=== PATIENT | female | born 1995 | race Caucasian/White ===

== ENCOUNTER → 2020-10-14 | Emergency (ER) | payer OTHER ==
[~2020-10-14] VITALS: Ht 172.7 cm; Wt 79.4 kg
== END | disposition home or self-care (01) ==
LOC: ER 20:20
DX: N89.8 Other specified noninflammatory disorders of vagina (principal); A63.8 Other specified predominantly sexually transmitted diseases

== ENCOUNTER 2020-12-12 09:41 | Emergency (ER) | payer OTHER ==
[~2020-12-12] VITALS: Ht 167.6 cm; Wt 81.6 kg
== END 2020-12-12 15:40 | disposition home or self-care (01) ==
LOC: ER 09:41
DX: R07.89 Other chest pain (principal); G89.11 Acute pain due to trauma

== ENCOUNTER 2021-09-24 09:52 | Emergency (ER) | payer OTHER ==
[~2021-09-24] VITALS: Ht 172.7 cm; Wt 83.9 kg
[2021-09-24] MEDS ORDERED: MOMETASONE FURO15 G2 TOP (13:38)
== END 2021-09-24 13:47 | disposition home or self-care (01) ==
LOC: ER 09:52
DX: L25.8 Unspecified contact dermatitis due to other agents (principal)

== ENCOUNTER 2022-04-25 08:30 | Outpatient (CLI) | payer OTHER ==
[~2022-04-25 08:30] MED LIST: MOMETASONE FURO15 G2 TOP
== END 2022-04-25 08:36 | disposition home or self-care (01) ==
LOC: RAD 08:30
PROVIDERS: ATTEND Internal Medicine Cardiovascular Disease
DX: I11.9 Hypertensive heart disease without heart failure (principal)

== ENCOUNTER 2025-06-20 16:16 | Outpatient (CLI) | payer OTHER | END 2025-06-20 16:25 | disposition home or self-care (01) | LOC: RAD 16:16 | DX: M79.644 Pain in right finger(s) (principal) ==

== ENCOUNTER 2025-06-24 14:23 | Outpatient (CLI) | payer OTHER | END 2025-06-24 14:33 | disposition home or self-care (01) | LOC: RAD 14:23 → SONOGRAMA 14:23 → RAD 14:33 | DX: M79.644 Pain in right finger(s) (principal) ==